=== PATIENT | male | born 1995 | race Caucasian/White ===

== ENCOUNTER 2020-01-07 16:37 | Emergency (ER) | payer BC, SELFPAY ==
[2020-01-07 16:47] VITALS: BP 143/105; PULSE 119; RESP 22; TEMP 37.3; O2SAT 97
--- NOTE | 2020-01-07 16:54 | ECG_ITS ---
Measurements Intervals [place] Rate: 74 P: 54 TN: 150 QRS: 67 QRSD: 99 T: 50 QT: 356 QTc: 395 Interpretive Statements SINUS RHYTHM WITH SINUS ARRHYTHMIA MINIMAL Q WAVES- ANTEROLAT/INF LEADS BORDERLINE ECG Electronically Signed On 01-07-2020 19:36:49 CDT by Uday Oscar D.O.
--- NOTE | 2020-01-07 16:54 | ED.GENADULT ---
HPI - General Adult General Chief complaint: Skin/Abscess/Foreign Body <Amy Hartmann PA-C - Last Filed: 01/07/20 20:18> Stated complaint: ingrown toenail <DUSTY Ramon Last Filed: 01/07/20 20:18> Time Seen by Provider: 01/07/20 16:42 <DUSTY Ramon Last Filed: 01/07/20 20:18> Source: patient <DUSTY Ramon Last Filed: 01/07/20 20:18> Mode of arrival: ambulatory <DUSTY Ramon Last Filed: 01/07/20 20:18> Limitations: no limitations <Amy Hartmann PA-C - Last Filed: 01/07/20 20:18> History of Present Illness HPI narrative: 24-year-old male who is here for evaluation of toe pain. He felt that he had ingrown toenails in both his great toes. His right great toe is red and swollen. Both his nails have fungal infections. He did cut away at his nails himself now they are both quite short, neither look ingrown. He has lesions on his knees from picking. And erythema in a glove distribution of his hands from what he states is chronic handwashing due to his ADHD. He is also wanting to be tested for his hypertension that he has noted since he has been checking his blood pressure at home with his grandfathers machine. Apparently his grandfather has some sort of heart disease that he is afraid he is inherited but he is unsure what that is. <DUSTY Ramon Last Filed: 01/07/20 20:18> Onset (ago): day(s) <DUSTY Ramon Last Filed: 01/07/20 20:18> Related Data Home medications: Home Medications Medication Instructions Recorded Confirmed No Home Medications 01/07/20 01/07/20 <DUSTY Ramon Last Filed: 01/07/20 20:18> Allergies/adverse reactions: Allergies Allergy/AdvReac Type Severity Reaction Status Date / Time No Known Allergies Allergy Verified 01/07/20 16:52 <Amy Hartmann PA-C - Last Filed: 01/07/20 20:18> Review of Systems Review of Systems: All systems reviewed & are unremarkable except as noted in HPI and below <Amy Hartmann PA-C - Last Filed: 01/07/20 20:18> [facility] Family History Family History: Family History Grandparent Heart disease Gout <Amy Hartmann PA-C - Last Filed: 01/07/20 20:18> Social History Social History: Social History (Updated 01/07/20 @ 17:21 by Amy Hartmann PA-C) Smoking status: Current every day smoker Alcohol intake: current Substance use type: marijuana and crack/cocaine Gender identity (if verbalized by the patient): Male <Amy Hartmann PA-C - Last Filed: 01/07/20 20:18> Exam Const: General: no acute distress and alert <Amy Hartmann PA-C - Last Filed: 01/07/20 20:18> Orientation/consciousness: patient oriented x3 <Amy Hartmann PA-C - Last Filed: 01/07/20 20:18> HENMT: Head: normal to inspection <Amy Hartmann PA-C - Last Filed: 01/07/20 20:18> Eyes: Conjunctivae: conjunctivae normal <Amy Hartmann PA-C - Last Filed: 01/07/20 20:18> Pupils: Equal, round and reactive pupils present <Amy Hartmann PA-C - Last Filed: 01/07/20 20:18> Resp: Effort & Inspection: normal respiratory effort <Amy Hartmann PA-C - Last Filed: 01/07/20 20:18> Auscultation: clear to auscultation bilaterally <Amy Hartmann PA-C - Last Filed: 01/07/20 20:18> Cardio: Rate: tachycardic (120) <Amy Hartmann PA-C - Last Filed: 01/07/20 20:18> Rhythm: regular rhythm <DUSTY Ramon Last Filed: 01/07/20 20:18> Skin: General skin exam: dry skin (both knees) and erythema (glove distribution both hands) <Amy Hartmann PA-C - Last Filed: 01/07/20 20:18> Lesions: lesion noted (scabbed lesions over both knees) <DUSTY Ramon Last Filed: 01/07/20 20:18> Nails: yellow and thickened (both great toes) <DUSTY Ramon Last Filed: 01/07/20 20:18> Neuro: General: patient oriented x3 and moves all extremities <Amy Hartmann,
[2020-01-07 17:23] LABS: Basophils Percent Auto 0.6 % (0.2-1.2); Eosinophils Absolute Auto 0.1 K/mm3 (0-0.3); Eosinophils Percent Auto 1.1 % (0-4.4); Hematocrit 37.3 % (42.0-52.0); Hemoglobin 12.6 g/dL (14.0-18.0); Immature Granulocyte Absolute 0.01 K/mm3 (0.00-0.031); Immature Granulocyte Percent A 0.1 % (0-0.5); Lymphocytes Absolute Auto 2.56 K/mm3 (0.9-3.2); Lymphocytes Percent Auto 36.5 % (18.3-44.2); Mean Corpuscular HGB Conc 33.8 g/dl (32-36); Mean Corpuscular Volume 88.8 fl (80-100); Monocytes Absolute Auto 0.8 K/mm3 (0.1-0.6); Neutrophils Absolute Auto 3.6 K/mm3 (1.3-6.7); Neutrophils Percent Auto 50.7 % (45.5-73.1); Platelet Count Result 239 k/mm3 (150-375); Red Cell Distribution Width 13.1 % (11.5-14.5)
[2020-01-07 17:36] LABS: Alanine Aminotransferase 12 U/L (4-50); Albumin Level 4.1 g/dL (3.5-5.1); Alkaline Phosphatase 61 U/L (38-126); Aspartate Amino Transferase 19 U/L (17-59); Bilirubin,Total 0.3 mg/dL (0.2-1.3); Blood Urea Nitrogen 12 mg/dL (9-20); Carbon Dioxide 30 mmol/L (22-30); Chloride 105 mmol/L (98-107); Estimated CRCL calculation 112 ml/min; Estimated Glomerular Filt Rate > 60; Glucose 95 mg/dL (75-110); Potassium 3.8 mmol/L (3.4-5.0); Sodium 140 mmol/L (137-145)
[2020-01-07] MEDS: IBUPROFEN 400 MG TABLET 800 MG PO (17:50)
== END 2020-01-07 17:53 | disposition home or self-care (01) ==
PROVIDERS: Physician Assistant; Emergency Provider General Practice
DX: B35.1 Tinea unguium (principal)
CPT/HCPCS: 36415; 80053; 84550; 85025; 93005; 99283; A9270

== ENCOUNTER 2023-10-01 06:22 | Emergency (ER) | payer BC, SELFPAY ==
--- NOTE | ~2023-10-01 | CT_ITS ---
EXAMINATION: CT abdomen pelvis wo con DATE: 10/01/2023 08:15 INDICATION: Flank pain TECHNIQUE: Computed tomography (CT) of the abdomen and pelvis was performed without intravenous contr ast. Automated exposure control and iterative reconstruction technique were employed. Exam dose: 266 .92 mGy-cm total exam DLP. COMPARISON: None. FINDINGS: There is bibasilar mild dependent lower lobe atelectasis. Normal heart size. No pericardi al or pleural effusion. The liver, gallbladder, bile ducts, pancreas, pancreatic duct, spleen and adr enal glands are unremarkable. No renal space occupying mass lesion is evident on this limited noncontrast examination. No right urinary tract calculus or hydroureteronephrosis. There is an approximately 3 mm nonobstructing left renal calculus. There is an approximately 11 x 12.6 mm left renal pelvic calculus with attenuation of 1087 H.U. There appears to be some thickening of the left renal pelvis wall and surrounding fat stranding, sugg esting possible infection and/or obstructive pyelosinus extravasation. However, in the left renal pel octaviano calculus does not appear to be obstructing the ureterovesical junction in its current position. N o significant hydronephrosis is evident. No left or right ureteral calculus or dilatation. There is a 3 mm calculus of the right lateral dependent aspect of the urinary bladder just lateral to the right ureterovesical junction at the trigone area. The urinary bladder is otherwise unremarkable. There are multiple prostate calcifications. Normal caliber of the abdominal aorta. No intraperitoneal or retroperitoneal or pelvic mass lesion or adenopathy or ascites. Normal appendix. No bowel obstruction, bowel wall thickening, pneumatosis or intraperitoneal free air . Small fat-containing umbilical hernia. Small fat-containing left inguinal hernia. Approximately 1 cm sclerotic lesion of the L3 vertebral body, most likely bone island. IMPRESSION: Limited 0.6 mm left renal pelvic calculus (1087 Hounsfield units) Left renal pelvic wall soft tissue thickening and surrounding fat stranding suggesting obstructive py elosinus extravasation and/or infection 3 mm nonobstructing left renal calculus Normal appendix Reviewed, dictated and finalized at [facility]. Reviewed, dictated and finalized at [facility]. [facility] IMPRESSION: Limited 0.6 mm left renal pelvic calculus (1087 Hounsfield units) Left renal pelvic wall soft tissue thickening and surrounding fat stranding sug gesting obstructive pyelosinus extravasation and/or infection 3 mm nonobstructing left renal calculus Normal appendix
[2023-10-01 06:28] VITALS: BP 142/88; PULSE 61; RESP 18; TEMP 36.9; O2SAT 99
[2023-10-01 07:07] LABS: Basophils Percent Auto 0.5 % (0.2-1.2); Eosinophils Absolute Auto 0.1 K/mm3 (0-0.3); Eosinophils Percent Auto 0.9 % (0-4.4); Hematocrit 41.4 % (42.0-52.0); Hemoglobin 13.7 g/dL (14.0-18.0); Immature Granulocyte Absolute 0.02 K/mm3 (0.00-0.031); Immature Granulocyte Percent A 0.3 % (0-0.5); Lymphocytes Absolute Auto 1.16 K/mm3 (0.9-3.2); Lymphocytes Percent Auto 14.8 % (18.3-44.2); Mean Corpuscular HGB Conc 33.1 g/dl (32-36); Mean Corpuscular Hemoglobin 30.4 pg (26-34); Mean Platelet Volume 10.1 fl (7.4-10.4); Monocytes Absolute Auto 0.4 K/mm3 (0.1-0.6); Monocytes Percent Auto 4.5 % (2.6-8.5); Neutrophils Absolute Auto 6.2 K/mm3 (1.3-6.7); Platelet Count Result 194 k/mm3 (150-375); White Blood Count 7.8 K/mm3 (4.5-10.0)
[2023-10-01 07:18] LABS: Alanine Aminotransferase 15 U/L (6-50); Albumin Level 3.9 g/dL (3.5-5.1); Alkaline Phosphatase 72 U/L (38-126); Anion Gap 9 mmol/L (8-16); Aspartate Amino Transferase 19 U/L (17-59); Bilirubin,Total 0.4 mg/dL (0.2-1.3); Blood Urea Nitrogen 8 mg/dL (9-20); Calcium 8.6 mg/dL (8.4-10.2); Carbon Dioxide 25 mmol/L (22-30); Chloride 107 mmol/L (98-107); Estimated CRCL calculation 146 ml/min; Estimated Glomerular Filt Rate > 60; Glucose 132 mg/dL (65-110); Sodium 141 mmol/L (137-145)
[2023-10-01 07:22] LABS: Bacteria Urine None Seen /hpf; Non Pathogenic Casts 0-2; RBC Urine >100 /hpf (0-2); Squamous Epithelial Cell Urine Few /hpf (Few); WBC Urine 21-50 /hpf
[2023-10-01] MEDS: KETOROLAC 30 MG/ML VIAL (*BKC) IV PUSH (07:29)
[2023-10-01] MEDS: SODIUM CHLORIDE 0.9% IV 1,000 ML 999 ML IV CONT (07:29)
[2023-10-01 07:34] LABS: Appearance Urine Turbid (Clear); Bilirubin Urine Negative (Negative); Blood Urine 3+ (Negative); Glucose Urine UA Negative (Negative); Ketones Urine Trace mg/dL (Negative); Leukocyte Esterase Ur 1+ LEU/UL (Negative); Nitrate Urine Negative (Negative); Protein Urine 2+ mg/dL (Negative); Specific Grav Ur 1.023 (1.001-1.035); pH Urine 5.5 (5.0-9.0)
[2023-10-01 07:46] LABS: Add Urine Microscopic? YES; Color Urine Dark Yellow (Yellow)
[2023-10-01 09:41] VITALS: BP 123/61; PULSE 69; RESP 18; TEMP 36.8; O2SAT 100
--- NOTE | 2023-10-01 10:03 | ED.MALEGU ---
HPI - Male Genitourinary General Chief complaint: Urogenital-Male Stated complaint: flank pain Time Seen by Provider: 10/01/23 07:05 History of Present Illness HPI Narrative: Patient is a 28-year-old male who presents ER with flank pain. Ongoing for the last week. Began on the left side. Then aching. No aggravating or alleviating factors. Woke up this morning with severe pain on the right side going in the abdomen. No history kidney stones. No urinary frequency urgency or dysuria. Denies fevers or chills or sweats. No recent trauma. Related Data Allergies Allergy/AdvReac Type Severity Reaction Status Date / Time No Known Allergies Allergy Verified 10/01/23 07:01 Review of Systems Review of Systems: All systems reviewed & are unremarkable except as noted in HPI and below Constitutional: Constitutional: Reports no additional constitutional complaints ENT: Reports system reviewed and no additional complaints, except as documented Cardiovascular: Cardiovascular: Reports no additional cardiovascular complaints Respiratory: Respiratory: Reports no additional respiratory complaints Gastrointestinal: Gastrointestinal: Reports no additional gastrointestinal complaints Genitourinary: Genitourinary: Denies oliguria, Denies dysuria, Denies testicular pain and Denies urinary frequency Comments: +flank pain PMFSH Past Medical History Medical History (Updated 10/01/23 @ 10:59 by Troy Dunn MD) ADHD Anxiety Surgical History Surgical History (Updated 10/01/23 @ 10:04 by Troy Dunn MD) History of hernia surgery Family History Family History Grandparent Heart disease Gout Social History Social History (Updated 10/01/23 @ 10:05 by Troy Dunn MD) Social History: h/o heroin abuse, currently on suboxone 09/2023. Smoking status: Current every day smoker Alcohol intake: current Substance use type: marijuana and crack/cocaine Gender identity (if verbalized by the patient): Male Exam Narrative: GENERAL: Well-appearing, well-nourished, and in no acute distress. HEAD: Normocephalic, atraumatic. EYES: PERRL and EOMI. ENT: Mucous membranes moist. CHEST: Clear to auscultation. No respiratory distress. HEART: Regular rate and rhythm. Normal peripheral pulses. ABDOMEN: Soft, nontender, nondistended, no CVA tenderness. EXTREMITIES: Normal range of motion. No edema. SKIN: Warm, dry, no rash. NEURO: Alert and oriented x3. PSYCH: Normal mood and affect. Course Course Emergency Course: Patient informed of results. Urology consulted and they have been into the room and had a formal discussion with the patient. Will be discharged home on antibiotics and will follow up outpatient to have a stent and lithotripsy performed. Vital Signs Vital signs: Vital Signs Temperature 98.4 F 10/01/23 06:28 Pulse Rate 61 10/01/23 06:28 Respiratory Rate 18 10/01/23 06:28 Blood Pressure 142/88 H 10/01/23 06:28 Pulse Oximetry 99 10/01/23 06:28 Oxygen Delivery Room Air 10/01/23 06:28 Temperature 98.2 F 10/01/23 09:41 Pulse Rate 69 10/01/23 09:41 Respiratory Rate 18 10/01/23 09:41 Blood Pressure 123/61 10/01/23 09:41 Pulse Oximetry 100 10/01/23 09:41 Oxygen Delivery Room Air 10/01/23 06:28 MDM - Male Genitourinary Lab Data 10/01/23 06:59 10/01/23 06:59 Labs: Lab Results 10/01/23 Range/Units 06:59 WBC 7.8 (4.5-10.0) K/mm3 RBC 4.50 L (4.6-6.20) M/mm3 Hgb 13.7 L (14.0-18.0) g/dL Hct 41.4 L (42.0-52.0) % MCV 92.0 (80-100) fl MCH 30.4 (26-34) pg MCHC 33.1 (32-36) g/dl RDW 13.0 (11.5-14.5) % Plt Count 194 (150-375) k/mm3 MPV 10.1 (7.4-10.4) fl Immature Gran % (Auto) 0.3 (0-0.5) % Neut % (Auto) 79.0 H (45.5-73.1) % Lymph % (Auto) 14.8 L (18.3-44.2) % [place] % (Auto) 4.5 (2.6-8.5) % Eos % (Auto) 0.9 (0
--- NOTE | 2023-10-01 10:45 | PC.NURSE ---
Urology in to see pt.
--- NOTE | 2023-10-01 11:51 | WPDURCON ---
Assessment and Plan Assessment and plan (1) Kidney stone: Code(s): N20.0 - Calculus of kidney Status: Acute Assessment and Plan: Small 3 mm stone in his bladder that is likely recently passed from his right ureter Large 1.5 cm left renal pelvic stone - comfortable with discharge home on oral antibiotics pending a urine culture. - will make arrangements for outpatient cysto with left stent placement and left ESWL. Urology Consult Note HPI Date Seen: 10/01/23 Requesting Physician: Dr. Dunn Primary Care Provider: UNKNOWN,DOCTOR Consult Narrative Narrative: Wilberto Pryor is a 28 year old male who is unknown to our practice but has spontaneously passed a small stone in the distant past. He presents to the emergency department with a week-long history right flank pain radiating to his right lower quadrant. This has been associated with some nausea but no vomiting. He has had no fever chills or gross hematuria. Imaging demonstrates a small 3 mm right stone that has likely passed from his distal right ureter into his bladder. Additionally he has a 1.5 cm left renal pelvic stone with inflammation and edema of the renal pelvic wall. At this point, he is pain free after 1 dose of IV Toradol. Review of Systems Cardiovascular: Cardiovascular: Denies chest pain, Denies lightheadedness, Denies palpitations and Denies dyspnea Respiratory: Respiratory: Denies dyspnea Gastrointestinal: Gastrointestinal: Denies diarrhea, Denies nausea and Denies vomiting Genitourinary: Genitourinary: Denies hematuria and Denies dysuria Endocrine: Endocrine: Denies palpitations PMFSH Past Medical History Medical History (Updated 10/01/23 @ 10:59 by Troy Dunn MD) ADHD Anxiety Surgical History Surgical History (Updated 10/01/23 @ 10:04 by Troy Dunn MD) History of hernia surgery Family History Family History Grandparent Heart disease Gout Social History Social History (Updated 10/01/23 @ 10:05 by Troy Dunn MD) Social History: h/o heroin abuse, currently on suboxone 09/2023. Smoking status: Current every day smoker Alcohol intake: current Substance use type: marijuana and crack/cocaine Gender identity (if verbalized by the patient): Male Meds Home Medications and Allergies Home Medications Medication Instructions Recorded Confirmed Type cefuroxime axetil 500 mg tablet 500 mg PO BID #20 tabs 10/01/23 Rx Allergies Allergy/AdvReac Type Severity Reaction Status Date / Time No Known Allergies Allergy Verified 10/01/23 07:01 Vital Signs Vital Signs - 24 hr 10/01/23 06:28 10/01/23 09:41 Temperature 98.4 F 98.2 F Pulse Rate 61 69 Respiratory Rate 18 18 Blood Pressure 142/88 H 123/61 Pulse Oximetry 99 100 Oxygen Delivery Room Air Exam Const: General: no acute distress Resp: Effort & Inspection: normal respiratory effort GI: Inspection: non-distended GI Palp: No abdominal tenderness and No Guarding due to palpation present (GI) Auscultation: normal bowel sounds Results Labs 10/01/23 06:59 10/01/23 06:59 Labs: Short CBC 10/01/23 Range/Units 06:59 WBC 7.8 (4.5-10.0) K/mm3 Hgb 13.7 L (14.0-18.0) g/dL Hct 41.4 L (42.0-52.0) % Plt Count 194 (150-375) k/mm3 BMP 10/01/23 06:59 Sodium 141 Potassium 4.0 Chloride 107 Carbon Dioxide 25 BUN 8 L Creatinine 0.70 Glucose 132 H Calcium 8.6 Liver Function 10/01/23 Range/Units 06:59 Total Bilirubin 0.4 (0.2-1.3) mg/dL AST 19 (17-59) U/L ALT 15 (6-50) U/L Alkaline Phosphatase 72 (38-126) U/L Albumin 3.9 (3.5-5.1) g/dL Urine 10/01/23 Range/Units 06:59 Urine Color Dark yellow (Yellow) Urine Appearance Turbid H (Clear) Urine pH 5.5 (5.0-9.0) Ur Specific [place] 1.023 (1.001-1.035) Urine Protein 2+ H (Negative)
== END 2023-10-01 11:14 | disposition home or self-care (01) ==
PROVIDERS: Emergency Provider Emergency Medicine
DX: N20.0 Calculus of kidney (principal); F17.200 Nicotine dependence, unspecified, uncomplicated
CPT/HCPCS: 36415; 74176; 80053; 81001; 85025; 87086; 96361; 96374; 99284; J1885; J7030

== ENCOUNTER 2023-10-21 12:35 | Emergency (ER) | payer BC, SELFPAY ==
[2023-10-21 12:39] VITALS: BP 141/69; PULSE 54; RESP 18; TEMP 36.4; O2SAT 100
[2023-10-21 12:53] LABS: Basophils Absolute Auto 0.1 K/mm3 (0.0-0.1); Basophils Percent Auto 0.7 % (0.2-1.2); Eosinophils Absolute Auto 0.1 K/mm3 (0-0.3); Eosinophils Percent Auto 1.2 % (0-4.4); Hematocrit 42.9 % (42.0-52.0); Hemoglobin 14.6 g/dL (14.0-18.0); Immature Granulocyte Absolute 0.03 K/mm3 (0.00-0.031); Immature Granulocyte Percent A 0.3 % (0-0.5); Lymphocytes Absolute Auto 3.87 K/mm3 (0.9-3.2); Lymphocytes Percent Auto 42.4 % (18.3-44.2); Mean Corpuscular Hemoglobin 30.2 pg (26-34); Mean Corpuscular Volume 88.6 fl (80-100); Mean Platelet Volume 10.1 fl (7.4-10.4); Monocytes Absolute Auto 0.5 K/mm3 (0.1-0.6); Monocytes Percent Auto 5.3 % (2.6-8.5); Neutrophils Absolute Auto 4.6 K/mm3 (1.3-6.7); Neutrophils Percent Auto 50.1 % (45.5-73.1); Platelet Count Result 324 k/mm3 (150-375); Red Blood Count 4.84 M/mm3 (4.6-6.20); Red Cell Distribution Width 12.3 % (11.5-14.5); White Blood Count 9.1 K/mm3 (4.5-10.0)
[2023-10-21 18:01] LABS: Alanine Aminotransferase 13 U/L (6-50); Albumin Level 4.1 g/dL (3.5-5.1); Alkaline Phosphatase 80 U/L (38-126); Anion Gap 8 mmol/L (8-16); Aspartate Amino Transferase 17 U/L (17-59); Bilirubin,Total 0.4 mg/dL (0.2-1.3); Blood Urea Nitrogen 12 mg/dL (9-20); Calcium 8.9 mg/dL (8.4-10.2); Carbon Dioxide 28 mmol/L (22-30); Chloride 106 mmol/L (98-107); Estimated Glomerular Filt Rate > 60; Glucose 133 mg/dL (65-110); Potassium 3.3 mmol/L (3.4-5.0); Sodium 142 mmol/L (137-145)
== END 2023-10-21 15:48 | disposition left against medical advice (07) ==
PROVIDERS: Emergency Provider Emergency Medicine
DX: N20.0 Calculus of kidney (principal)
CPT/HCPCS: 36415; 80053; 85025; 99199

== ENCOUNTER 2024-04-22 08:07 | Emergency (ER) | payer BC, SELFPAY ==
--- NOTE | ~2024-04-22 | CT_ITS ---
EXAMINATION: CT abdomen pelvis wo con DATE: 04/22/2024 09:41 INDICATION: Left flank pain TECHNIQUE: Computed tomography (CT) of the abdomen and pelvis was performed without intravenous contr ast. The dose-length product was 272.71 mGy-cm. Automated exposure control and iterative reconstructi on technique were employed. COMPARISON: CT dated 10/01/2023 FINDINGS: Lung bases are unremarkable. Heart size normal. No significant pleural or pericardial effus ion. There is a large stone in the left renal pelvis measuring 1.5 x 1.2 cm. There is left hydronephr osis. The liver, spleen, pancreas, adrenal glands and right kidney are unremarkable. Gallbladder is p resent. Nonobstructive bowel gas pattern. No free air or free fluid. Bladder is unremarkable. No abno rmal pelvic masses or fluid collections. IMPRESSION: 1. Left renal stone in the renal pelvis measuring 1.5 cm. Mild hydronephrosis. Reviewed, dictated and finalized at [facility].
[2024-04-22 08:12] VITALS: BP 122/59; PULSE 71; RESP 16; TEMP 36.7; O2SAT 100
[2024-04-22 09:07] LABS: Basophils Percent Auto 0.4 % (0.2-1.2); Eosinophils Absolute Auto 0.1 K/mm3 (0-0.3); Eosinophils Percent Auto 0.7 % (0-4.4); Hematocrit 42.8 % (42.0-52.0); Hemoglobin 14.1 g/dL (14.0-18.0); Immature Granulocyte Absolute 0.04 K/mm3 (0.00-0.031); Immature Granulocyte Percent A 0.4 % (0-0.5); Lymphocytes Absolute Auto 1.42 K/mm3 (0.9-3.2); Lymphocytes Percent Auto 14.3 % (18.3-44.2); Mean Corpuscular HGB Conc 32.9 g/dl (32-36); Mean Corpuscular Hemoglobin 29.9 pg (26-34); Mean Corpuscular Volume 90.9 fl (80-100); Mean Platelet Volume 10.5 fl (7.4-10.4); Monocytes Absolute Auto 0.5 K/mm3 (0.1-0.6); Monocytes Percent Auto 4.6 % (2.6-8.5); Neutrophils Absolute Auto 7.9 K/mm3 (1.3-6.7); Neutrophils Percent Auto 79.6 % (45.5-73.1); Platelet Count Result 214 k/mm3 (150-375); Red Blood Count 4.71 M/mm3 (4.6-6.20); Red Cell Distribution Width 12.6 % (11.5-14.5); White Blood Count 9.9 K/mm3 (4.5-10.0)
[2024-04-22 09:11] LABS: Alanine Aminotransferase 8 U/L (6-50); Albumin Level 4.7 g/dL (3.5-5.1); Alkaline Phosphatase 54 U/L (38-126); Anion Gap 9 mmol/L (4-12); Aspartate Amino Transferase 18 U/L (17-59); Bilirubin,Total 0.4 mg/dL (0.2-1.3); Blood Urea Nitrogen 11 mg/dL (9-20); Calcium 9.5 mg/dL (8.4-10.2); Carbon Dioxide 30 mmol/L (22-30); Chloride 102 mmol/L (98-107); Estimated CRCL calculation 122 ml/min; Estimated Glomerular Filt Rate > 60; Glucose 104 mg/dL (65-110); Potassium 4.4 mmol/L (3.4-5.0); Sodium 141 mmol/L (137-145)
--- NOTE | 2024-04-22 09:18 | ED.GENADULT ---
HPI - General Adult General Chief complaint: Urogenital-Male Stated complaint: left flank pain Time Seen by Provider: 04/22/24 08:31 History of Present Illness HPI narrative: 28-year-old male presenting to the emergency department for evaluation for left flank pain. Patient reports that he does have a prior history of a kidney stone but never had follow-up to have the kidney stone taking care of. Patient states that he had forgotten about the kidney stone until he had onset of left flank pain this morning. Patient did have associated nausea and a bowel movement. Patient reports he does have a prior history of opiate abuse and declined any opiate pain medications. Related Data Allergies Allergy/AdvReac Type Severity Reaction Status Date / Time No Known Allergies Allergy Verified 10/01/23 07:01 Review of Systems Review of Systems: All systems reviewed & are unremarkable except as noted in HPI and below PMFSH Past Medical History Medical History (Updated 04/22/24 @ 10:13 by Toño Becker MD) ADHD Anxiety Surgical History Surgical History (Updated 10/01/23 @ 10:04 by Troy Dunn MD) History of hernia surgery Family History Family History Grandparent Heart disease Gout Social History Social History (Updated 10/01/23 @ 10:05 by Troy Dunn MD) Social History: h/o heroin abuse, currently on suboxone 09/2023. Smoking status: Current every day smoker Alcohol intake: current Substance use type: marijuana and crack/cocaine Gender identity (if verbalized by the patient): Male Exam Narrative: APPEARANCE: No distress, well-appearing HEAD: normocephalic, atraumatic. EYES: PERRLA/EOMI, conjunctivae clear. NOSE: Normal no drainage EARS:TMS clear with good light reflex. THROAT: Pharynx clear, no exudate. NECK: Supple. No adenopathy, no masses. RESPIRATORY: Airway patent, respirations nonlabored. Clear to auscultation bilaterally, no rales, rhonchi, wheezing. CARDIOVASCULAR: Regular rate and rhythm without murmurs rubs or gallops. ABDOMINAL: Soft, nontender, nondistended, normal bowel sounds MUSCULOSKELETAL: Moves all extremities. Strength/ROM intact, No edema, No calf tenderness. NEURO: Alert. Cranial nerves II through XII intact. Grossly intact SKIN: Warm, dry. Normal Color Course Course Emergency Course: Patient was comfortable plan for discharge and close follow-up. Patient was no distress at time of discharge. Vital Signs Vital signs: Vital Signs Temperature 98.1 F 04/22/24 08:12 Pulse Rate 71 04/22/24 08:12 Respiratory Rate 16 04/22/24 08:12 Blood Pressure 122/59 L 04/22/24 08:12 Pulse Oximetry 100 04/22/24 08:12 Oxygen Delivery Room Air 04/22/24 08:12 Temperature 98.1 F 04/22/24 08:12 Pulse Rate 55 L 04/22/24 09:34 Respiratory Rate 16 04/22/24 09:34 Blood Pressure 122/66 04/22/24 09:34 Pulse Oximetry 100 04/22/24 09:34 Oxygen Delivery Room Air 04/22/24 08:12 Medical Decision Making MDM Narrative Medical decision making narrative: 28-year-old male present to the emergency department for evaluation for intermittent left flank pain. Patient is afebrile with no leukocytosis and a stable hemoglobin. Patient has no acute abnormalities on his CMP is normal kidney function. UA does show some hematuria and some high white blood cells. CT scan did show evidence of a stone in the left renal pelvis. Patient was going to have outpatient follow-up previously for this and patient is willing to have outpatient follow-up today. Patient is no distress patient has no acute infection. Patient is suitable for outpatient follow-up. Patient was also educated on reasons to return to the emergency department. Differential Diagnosis Differential Diagnosis: Ureteral calculi, kidney stone, urinary tract infection, infected stone, colitis, diverticulitis Vital Signs Vital Signs: Vit
[2024-04-22 09:24] LABS: Appearance Urine Clear (Clear); Bacteria Urine None Seen /hpf; Bilirubin Urine Negative (Negative); Blood Urine 2+ (Negative); Color Urine Yellow (Yellow); Glucose Urine UA Negative (Negative); Ketones Urine Trace mg/dL (Negative); Leukocyte Esterase Ur Trace LEU/UL (Negative); Mucus Urine Present /lpf; Need Manual Microscopic Reviewed; Nitrate Urine Negative (Negative); Non Pathogenic Casts 0-2; Protein Urine 2+ mg/dL (Negative); Specific Grav Ur 1.024 (1.001-1.035); Squamous Epithelial Cell Urine None Seen /hpf (Few); Urobilinogen Urine 0.2 mg/dL (<2.0); pH Urine 5.5 (5.0-9.0)
[2024-04-22 09:26] LABS: Add Urine Microscopic? YES
[2024-04-22 09:34] VITALS: BP 122/66; PULSE 55; RESP 16; O2SAT 100
[2024-04-22] MEDS: KETOROLAC 30 MG/ML VIAL (*BKC) IM (10:34)
== END 2024-04-22 10:41 | disposition home or self-care (01) ==
PROVIDERS: Emergency Provider Emergency Medicine
DX: N20.0 Calculus of kidney (principal); F90.9 Attention-deficit hyperactivity disorder, unspecified type; F17.210 Nicotine dependence, cigarettes, uncomplicated
CPT/HCPCS: 36415; 74176; 80053; 81001; 85025; 87086; 96372; 99284; J1885

== ENCOUNTER 2024-07-17 09:17 | Emergency (ER) | payer BC, SELFPAY ==
--- NOTE | 2024-07-17 09:24 | ED.NAVMDI ---
HPI - Nausea/Vomiting/Diarrhea General Chief complaint: Nausea/Vomiting/Diarrhea Stated complaint: vomiting Time Seen by Provider: 07/17/24 09:24 Source: patient Mode of arrival: ambulatory Limitations: no limitations History of Present Illness HPI Narrative: Wilberto is a 28-year-old male patient presenting to the clinic today with complaints of runny nose, nausea, and vomiting. He reports his symptoms started last night. He has had exposure to COVID. Did at home COVID test last night was negative. Denies any fevers but does have some body aches but states that this is normal for him. Denies any chest pain, shortness of breath, cough, or diarrhea. Related Data Allergies Allergy/AdvReac Type Severity Reaction Status Date / Time No Known Allergies Allergy Verified 07/17/24 09:23 Review of Systems Review of Systems: Pertinent positives per HPI. Patient denies any fever, chills, rash, headache, visual changes, dizziness, cough, shortness of breath, chest pain, palpitations, diarrhea, constipation, abdominal pain, or any urinary issues. PMFSH Past Medical History Medical History ADHD Anxiety Surgical History Surgical History History of hernia surgery Family History Family History Grandparent Heart disease Gout Social History Social History Social History: h/o heroin abuse, currently on suboxone 09/2023. Smoking status: Current every day smoker Alcohol intake: current Substance use type: marijuana and crack/cocaine Gender identity (if verbalized by the patient): Male Comments At the time of my signature, I reviewed and agree with the nursing past medical, surgical, social, and family history. There is no relevant family history pertinent to the patient complaint. Exam Narrative: General: Well-developed, well nourished, in no apparent distress Head: Normocephalic, atraumatic Eyes: Pupils equally round and reactive to light bilaterally, EOM intact, sclera and conjunctive clear, no discharge, lids normal Ears: TMs intact and clear, ear canals clear, no drainage, grossly hearing normal. Nose: Nares patent, clear nasal discharge, no inflammation, no sinus tenderness. Mouth: Oral pharynx without lesions or masses, good dentition, MMM. Neck: Supple, trachea midline, no enlargement of anterior or posterior cervical nodes, no thyroid masses or goiter palpable. Cardio: Regular rate and rhythm, s1 and s2 normal, no murmur appreciated. Resp: Clear to auscultation bilaterally, no rhonchi, rales, wheezing or rubs Abdomen: Soft, pliable, nondistended, bowel sounds present all 4 quadrants, nontender to palpation, no organomegaly, no CVAT tenderness Course Course Emergency Course: Portions of this record may have been created with voice recognition software. Level of Care: Express Care Visit Vital Signs Vital signs: Vital signs reviewed MDM - Nausea/Vomiting/Diarrhea MDM Narrative Medical decision making narrative: At the time of visit patient is resting comfortably on the exam table. Patient appears to be nontoxic. Labs: COVID and influenza testing was performed and was negative in the clinic today. Plan: I suspect patient has URI/acute nausea vomiting. Prescription for Zofran was sent to the pharmacy. Supportive measures were discussed with the patient and they voiced understanding discharge instructions and agrees to treatment plan. Return precautions reviewed Differential Diagnosis Differential diagnosis: Likely traveler's diarrhea, food poisoning, gastroenteritis, drug-induced nausea and vomiting, dehydration and other (COVID, influenza, viral syndrome) Discharge Plan Discharge Clinical Impression: URI (upper respiratory infection) Qualifiers: UR
[2024-07-17 09:25] VITALS: BP 143/82; PULSE 83; RESP 16; TEMP 36.6; O2SAT 100
[2024-07-17 10:06] LABS: EDCOVIDSCREEN Negative (Negative); EDINFLUASCREEN Negative (Negative); EDINFLUBSCREEN Negative (Negative)
== END 2024-07-17 09:50 | disposition home or self-care (01) ==
PROVIDERS: Emergency Provider Nurse Practitioner Family
DX: J06.9 Acute upper respiratory infection, unspecified (principal); R11.2 Nausea with vomiting, unspecified; Z20.822 Contact with and (suspected) exposure to COVID-19; F17.200 Nicotine dependence, unspecified, uncomplicated; F12.90 Cannabis use, unspecified, uncomplicated; F14.90 Cocaine use, unspecified, uncomplicated
CPT/HCPCS: 87426; 87804; 99213; G0463

== ENCOUNTER 2024-10-01 08:49 | Day surgery (SDC) | payer BC, SELFPAY ==
[2024-10-01] VITALS (10 sets, daily range): BP systolic 111–151; BP diastolic 66–85; PULSE 71–132; RESP 11–20; TEMP 37.2–37.8; O2SAT 98–100
--- NOTE | ~2024-10-01 | CT_ITS ---
CT abdomen pelvis wo con Ordering provider: Aristeo Henriquez MD History: 29 years Male with . kidney stone . Comparison: April 22, 2024 Technique: CT abdomen and pelvis without the administration of the knee and the left IV and without o ral contrast. Automated exposure control and iterative reconstruction technique were employed. The do se-length product was 189.62 mGy-cm. Findings: VISUALIZED LOWER CHEST: Normal. UPPER ABDOMINAL ORGANS: Liver: Hepatomegaly. Gallbladder: Normal. Spleen: Normal. Stomach/duodenum: Normal. Pancreas: Normal. Adrenals: Normal. Kidneys: Stone in the left renal pelvis is seen measuring 1.6 cm with mild hydronephrotic changes. PELVIC ORGANS: The bladder is normal. BOWEL AND MESENTERY: Colon: No evidence of diverticulitis. Fecal material is seen in the large bowel suggestive of constip ation. The appendix is not demonstrated. Small Bowel: Normal. No obstruction. Peritoneum/mesentery: No free air or free fluid. No mesenteric lymphadenopathy. RETROPERITONEUM: Normal aorta. No retroperitoneal lymphadenopathy. MUSCULOSKELETAL: Superficial soft tissues: The superficial soft tissues are normal. Bones: Normal spine. IMPRESSION: 1. Stone in the left kidney renal pelvis with mild hydronephrotic changes. 2. Constipation. 3. Hepatomegaly. Reviewed, dictated and finalized at location A. RONMENTAL PROTECTION INSPECTOR
--- NOTE | ~2024-10-01 | XR_ITS ---
XR retrograde pyelo w/stent LT DATE: 10/01/2024 17:07 INDICATION: Left internal urinary stent placement TECHNIQUE: 2 spot C-arm images of the left abdomen 21.6 seconds fluoroscopy time 3.81 mGy COMPARISON: None FINDINGS: A left internal urinary stent is visualized. There is mild left hydronephrosis and blunting of the left renal calyces IMPRESSION: Left internal urinary stent placement Reviewed, dictated and finalized at Location A. Reviewed, dictated and finalized at location A. FORM SUPERVISOR
--- NOTE | 2024-10-01 14:05 | ED.BACK ---
HPI - Back Pain/Injury General Chief Complaint: Back Pain/Injury Stated Complaint: kidney stone Time Seen by Provider: 10/01/24 12:22 History of Present Illness HPI Narrative: 29-year-old male with a past medical history of nephrolithiasis presenting to the emergency room with a chief complaint of left flank pain radiating to his left groin. He states he has had intermittent pain for last several months and was seen here a couple months prior and diagnosed with a large kidney stone. He was discharged home with urology follow-up but was not able to schedule anything secondary to insurance issues. He presents today with 2 days of ongoing back pain, associated nausea without vomiting, difficulty urinating and pain with urination. He states that it feels very similar to his kidney stone pain but now it is migrating towards his left groin which is new for him. Denies any injuries or trauma. No fever chills, headache, vision changes, chest pain shortness a breath. In triage she was noted to be tachycardic and borderline febrile with temperature 37.8? however both of these have resolved upon his initial presentation back in his examination room. Related Data Allergies Allergy/AdvReac Type Severity Reaction Status Date / Time No Known Allergies Allergy Verified 07/17/24 09:23 Review of Systems Review of Systems: As reviewed above in HPI [facility] Past Medical History Medical History Anxiety ADHD Surgical History Surgical History History of hernia surgery Family History Family History Grandparent Heart disease Gout Social History Social History Social History: h/o heroin abuse, currently on suboxone 09/2023. Smoking status: Current every day smoker Alcohol intake: current Substance use type: marijuana and crack/cocaine Gender identity (if verbalized by the patient): Male Exam Narrative: GENERAL: Uncomfortable appearing, not able to find a position of comfort in bed, awake alert able answer questions HEAD: [Normocephalic, atraumatic.] EYES: [PERRLA and EOMI.] ENT: Nares clear, no rhinorrhea or epistaxis. Mucous membranes moist. NECK: Supple. CHEST: [Clear to auscultation. No respiratory distress.] HEART: [Regular rate and rhythm]. No murmur heard. [Normal peripheral pulses.] ABDOMEN: [Soft, nondistended], tender to palpation left flank, no signs of peritonitis, [No rigidity or guarding] EXTREMITIES: Normal range of motion. [No edema.] SKIN: Warm, dry, no rash. NEURO: [No focal deficits]. Alert and oriented [x3.] PSYCH: [Normal mood and affect.] Course Vital Signs Vital signs: Vital Signs Temperature 37.8 C H 10/01/24 08:52 Pulse Rate 132 H 10/01/24 08:52 Respiratory Rate 20 10/01/24 08:52 Blood Pressure 151/69 H 10/01/24 08:52 Pulse Oximetry 100 10/01/24 08:52 Oxygen Delivery Autopap 10/01/24 08:52 Temperature 37.4 C 10/01/24 16:25 Pulse Rate 76 10/01/24 16:14 Respiratory Rate 16 10/01/24 16:14 Blood Pressure 111/67 10/01/24 16:14 Pulse Oximetry 98 10/01/24 16:14 Oxygen Delivery Autopap 10/01/24 08:52 MDM - Back Pain/Injury MDM Narrative Medical decision making narrative: 29-year-old male with history of nephrolithiasis presenting to the emergency room with left flank pain rating to his left groin. He is uncomfortable appearing, not able to sit still, endorses difficulty urinating and has was tachycardic and borderline febrile in triage. He is no longer tachycardic and his temperature is 37.4? C without intervention. He is saturating well on room air. Normal blood pressure. He has a soft nondistended but minimally tender abdomen left flank. Considerations presently are for a kidney stone especially given the size of his previous stone that likely is not migrated. The new associated groin pain could be a potential migration of the stone or separate stone or piece of the regional stone. Urinary tract infection with infected kidney stone is higher in the differential given his initial vitals. A CT scan without contrast was obtained as well as blood a sick laboratory studies including CBC, CMP, urinalysis. Patient requests non opiate level medications secondary to his history of substance use. He was given Toradol and a fluid bolus and reassessed. Patient was reassessed and his pain came down slightly down to a 7/10 after the Toradol. His white count is unremarkable, no evidence of any renal injury, normal creatinine. Urinalysis with some trace leukocytes but no convincing evidence of infection with a negative bacteria. His CT scan shows a 1.6 cm kidney stone in the renal pelvis and left side with some hydronephrotic changes. Patient is inquiring about any kind of interventions that could be done as he has had attempts at outpatient follow-up with Urology and scheduling appointments but due to multiple insurance issues has not been able to get follow-up over a year. I discussed the case with our on-call urologist Dr. Peterson who after reviewing patient's imaging and case has offered the patient a stent placement here in the hospital prior to discharge home. Patient and family were very appreciative this plan of care and were willing to undergo this. His last oral intake was 6:00 p.m. last night. He has made NPO and will be planned to go the operating room from the emergency department. Medical Records Attestation: I reviewed the patient's medical records. Lab Data Attestation: I reviewed the patient's lab results. 10/01/24 14:21 10/01/24 14:47 Labs: Lab Results 10/01/24 10/01/24 Range/Units 14:21 14:47 WBC 5.5 (4.5-10.0) K/mm3 RBC 4.33 L (4.6-6.20) M/mm3 Hgb 13.5 L (14.0-18.0) g/dL Hct 38.8 L (42.0-52.0) % MCV 89.6 (80-100) fl MCH 31.2 (26-34) pg MCHC 34.8 (32-36) g/dl RDW 12.3 (11.5-14.5) % Plt Count 168 (150-375) k/mm3 MPV 9.7 (7.4-10.4) fl Immature Gran % (Auto) 0.4 (0-0.5) % Neut % (Auto) 84.5 H (45.5-73.1) % Lymph % (Auto) 4.8 L (18.3-44.2) % [place] % (Auto) 9.7 H (2.6-8.5) % Eos % (Auto) 0.2 (0-4.4) % Baso % (Auto) 0.4 (0.2-1.2) % Lymph # (Auto) 0.26 L (0.9-3.2) K/mm3 [place] # (Auto) 0.5 (0.1-0.6) K/mm3 Eos # (Auto) 0.0 (0-0.3) K/mm3 Baso # (Auto) 0.0 (0.0-0.1) K/mm3 Abs Immat Gran (auto) 0.02 (0.00-0.031) K/mm3 Absolute Neuts (auto) 4.6 (1.3-6.7) K/mm3 Absolute Nucleated RBC 0.000 (0.0-0.012) K/mm3 Nucleated RBC % 0.0 (0.0-0.2) % Sodium 137 (137-145) mmol/L Potassium 3.7 (3.4-5.0) mmol/L Chloride 106 (98-107) mmol/L Carbon Dioxide 30 (22-30) mmol/L Anion Gap 1 L (4-12) mmol/L BUN 10 (9-20) mg/dL Creatinine 0.80 (0.7-1.3) mg/dL Estim Creat Clear Calc 112 ml/min Estimated GFR > 60 (59 - ) Glucose 101 (65-110) mg/dL Calcium 8.7 (8.4-10.2) mg/dL Total Bilirubin 0.3 (0.2-1.3) mg/dL AST 15 L (17-59) U/L ALT 11 (6-50) U/L Alkaline Phosphatase 53 (38-126) U/L Total Protein 7.0 (6.3-8.2) g/dL Albumin 4.0 (3.5-5.1) g/dL Urine Color Yellow (Yellow) Urine Appearance Clear (Clear) Urine pH 8.0 (5.0-9.0) Ur Specific [place] 1.014 (1.001-1.035) Urine Protein 1+ H (Negative) mg/dL Urine Glucose (UA) Negative (Negative) mg/dL Urine Ketones Negative (Negative) mg/dL Ur Blood (Man) 2+ H (Negative) Urine Nitrate Negative (Negative) Urine Bilirubin Negative (Negative) Urine Urobilinogen 0.2 (<2.0) mg/dL Leukocyte Esterase Rfl Trace H (Negative) DANIA/UL Urine RBC 21-50 H (0-2) /hpf Urine WBC 6-10 H (0-3) /hpf Ur Squamous Epith Cells None seen (Few) /hpf Urine Bacteria None seen /hpf Urine Casts 3-5 Imaging Data Attestation: I personally reviewed and interpreted this imaging study as follows: My impression: Large renal pelvis kidney stone measuring 1.56 cm Impressions Abdomen/Pelvis CT 10/01/24 15:04 IMPRESSION: 1. Stone in the left kidney renal pelvis with mild hydronephrotic changes. 2. Constipation. 3. Hepatomegaly. Discharge Plan Discharge Clinical Impression: Kidney stone on left side, Acute left flank pain Patient Disposition: Still a Patient Condition: Stable Time of Disposition: 15:54
[2024-10-01 14:31] LABS: Basophils Percent Auto 0.4 % (0.2-1.2); Eosinophils Percent Auto 0.2 % (0-4.4); Hematocrit 38.8 % (42.0-52.0); Hemoglobin 13.5 g/dL (14.0-18.0); Immature Granulocyte Absolute 0.02 K/mm3 (0.00-0.031); Immature Granulocyte Percent A 0.4 % (0-0.5); Lymphocytes Absolute Auto 0.26 K/mm3 (0.9-3.2); Lymphocytes Percent Auto 4.8 % (18.3-44.2); Mean Corpuscular HGB Conc 34.8 g/dl (32-36); Mean Corpuscular Hemoglobin 31.2 pg (26-34); Mean Corpuscular Volume 89.6 fl (80-100); Mean Platelet Volume 9.7 fl (7.4-10.4); Monocytes Absolute Auto 0.5 K/mm3 (0.1-0.6); Monocytes Percent Auto 9.7 % (2.6-8.5); Neutrophils Absolute Auto 4.6 K/mm3 (1.3-6.7); Neutrophils Percent Auto 84.5 % (45.5-73.1); Platelet Count Result 168 k/mm3 (150-375); Red Blood Count 4.33 M/mm3 (4.6-6.20); Red Cell Distribution Width 12.3 % (11.5-14.5); White Blood Count 5.5 K/mm3 (4.5-10.0)
[2024-10-01] MEDS: TAMSULOSIN HCL 0.4 MG CAPSULE PO (14:35)
[2024-10-01] MEDS: KETOROLAC 30 MG/ML VIAL (*BKC) IV PUSH (14:35)
[2024-10-01 14:42] LABS: Add Urine Microscopic? YES; Appearance Urine Clear (Clear); Bacteria Urine None Seen /hpf; Bilirubin Urine Negative (Negative); Blood Urine 2+ (Negative); Color Urine Yellow (Yellow); Glucose Urine UA Negative (Negative); Ketones Urine Negative (Negative); Leukocyte Esterase Ur Trace LEU/UL (Negative); Nitrate Urine Negative (Negative); Protein Urine 1+ mg/dL (Negative); RBC Urine 21-50 /hpf (0-2); Specific Grav Ur 1.014 (1.001-1.035); Squamous Epithelial Cell Urine None Seen /hpf (Few); Urobilinogen Urine 0.2 mg/dL (<2.0)
[2024-10-01] MEDS: LACTATED RINGERS 1,000 ML 999 ML IV CONT (14:47)
[2024-10-01 15:10] LABS: Alanine Aminotransferase 11 U/L (6-50); Alkaline Phosphatase 53 U/L (38-126); Anion Gap 1 mmol/L (4-12); Aspartate Amino Transferase 15 U/L (17-59); Bilirubin,Total 0.3 mg/dL (0.2-1.3); Blood Urea Nitrogen 10 mg/dL (9-20); Calcium 8.7 mg/dL (8.4-10.2); Carbon Dioxide 30 mmol/L (22-30); Chloride 106 mmol/L (98-107); Estimated CRCL calculation 112 ml/min; Estimated Glomerular Filt Rate > 60; Glucose 101 mg/dL (65-110); Potassium 3.7 mmol/L (3.4-5.0); Sodium 137 mmol/L (137-145)
--- NOTE | 2024-10-01 16:07 | WPDURCON ---
Assessment and Plan Assessment and plan (1) Left ureteral stone: Code(s): N20.1 - Calculus of ureter Status: Acute Plan Plan for cystoscopy, left retrograde pyelogram, left ureteral stent placement. Patient understands I will not be removing the stone at this time. He will require outpatient stone management likely extracorporeal shockwave lithotripsy. He understands risks of bleeding, infection, damage to urinary tract, inability to place the stent. If all goes well he can be discharged home postoperative from the recovery room Urology Consult Note HPI Date Seen: 10/01/24 Requesting Physician: Mike Peterson MD Primary Care Provider: SIGNALS INTELLIGENCE ANALYSIS MANAGER PHYSICIAN Consult Narrative Narrative: Wilberto Pryor is a 29 year old male with a known history of nephrolithiasis. He was seen by my partner Dr Jay Conroy exactly 1 year ago today for a large left UPJ stone measuring 1.5 cm. He has not had urologic follow-up but has had intermittent visits to the emergency room over the last year for left flank pain. He comes in today with significant left flank pain requiring high dose narcotics. CT scan done shows a 16 mm left UPJ stone with hydronephrosis. Urinalysis shows some red cells and some white cells but no bacteria. He is asymptomatic for infection. White blood cell count and creatinine is normal. Due to the size of the stone and significant pain he is in here we will place a left ureteral stent. Plan will be for definitive stone management to follow as an outpatient. If all goes well he can be discharged home postoperatively and will not have to stay in hospital. Note he has had stones in the past which she has passed spontaneously. He states over the last 12 months he has been to the ER 4-5 times Review of Systems Review of Systems: All systems reviewed & are unremarkable except as noted in HPI and below PMFSH Past Medical History Medical History Anxiety ADHD Surgical History Surgical History History of hernia surgery Family History Family History Grandparent Heart disease Gout Social History Social History Social History: h/o heroin abuse, currently on suboxone 09/2023. Smoking status: Current every day smoker Alcohol intake: current Substance use type: marijuana and crack/cocaine Gender identity (if verbalized by the patient): Male Meds Home Medications and Allergies Home Medications ?Medication ?Instructions ?Recorded ?Confirmed ?Type ondansetron 4 mg disintegrating 4 mg PO Q6H PRN nausea and 07/17/24 Rx tablet vomiting 3 days #12 tabs ondansetron 4 mg disintegrating 4 mg PO Q6H PRN nausea and 07/17/24 Rx tablet vomiting 3 days #12 tabs ciprofloxacin HCl 500 mg tablet 500 mg PO Q12H #10 tabs 10/01/24 Rx (Cipro) hydrocodone 5 mg-acetaminophen 325 1 tablet PO Q6H PRN pain #30 tabs 10/01/24 Rx mg tablet oxybutynin chloride 5 mg tablet 5 mg PO TID #30 tabs 10/01/24 Rx Allergies Allergy/AdvReac Type Severity Reaction Status Date / Time No Known Allergies Allergy Verified 07/17/24 09:23 Vital Signs Vital Signs - 24 hr 10/01/24 08:52 10/01/24 12:27 10/01/24 15:36 Temperature 100.0 F H 99.4 F 99.3 F Pulse Rate 132 H 99 83 Respiratory Rate 20 20 20 Blood Pressure 151/69 H 119/77 127/81 Pulse Oximetry 100 100 Oxygen Delivery Autopap Exam Const: General: cooperative, alert, awake, Physically active and in distress Nutritional Appearance: average body habitus and well nourished Orientation/consciousness: patient oriented x3 Limitations: no limitations and No altered mental status HENMT: Head: normal to inspection Eyes: General: appearance normal, both eyes and all related structures Neck: Neck: normal visual inspection and full ROM Resp: Effort & Inspection: normal respiratory effort and able to speak in complete sentences GI: Inspection: normal to inspection Back/Spine/Pelvis: Back: CVA tenderness Skin: General skin exam: normal color, no rashes or lesions noted and elasticity normal Neuro: General: patient oriented x3 and moves all extremities Extrem: General: normal to inspection and full ROM Psych: Appearance: grossly normal Results Labs 10/01/24 14:21 10/01/24 14:47 Labs: Short CBC 10/01/24 Range/Units 14:21 WBC 5.5 (4.5-10.0) K/mm3 Hgb 13.5 L (14.0-18.0) g/dL Hct 38.8 L (42.0-52.0) % Plt Count 168 (150-375) k/mm3 BMP 10/01/24 14:47 Sodium 137 Potassium 3.7 Chloride 106 Carbon Dioxide 30 BUN 10 Creatinine 0.80 Glucose 101 Calcium 8.7 Liver Function 10/01/24 Range/Units 14:47 Total Bilirubin 0.3 (0.2-1.3) mg/dL AST 15 L (17-59) U/L ALT 11 (6-50) U/L Alkaline Phosphatase 53 (38-126) U/L Albumin 4.0 (3.5-5.1) g/dL Urine 10/01/24 Range/Units 14:21 Urine Color Yellow (Yellow) Urine Appearance Clear (Clear) Urine pH 8.0 (5.0-9.0) Ur Specific [place] 1.014 (1.001-1.035) Urine Protein 1+ H (Negative) mg/dL Urine Glucose (UA) Negative (Negative) mg/dL Imaging My impression: I reviewed his CAT scan myself. He has a large 1.6 cm left UPJ stone with mild hydronephrosis.
--- NOTE | 2024-10-01 16:44 | WPDANESEPPF ---
Anes - Initial Pre Proc Eval Procedure: Operation Date: 10/01/24 16:30 Proposed Procedures p Cysto, RPG, Stone Ext, Stent Placement(Left) - Mike Peterson MD Date/Time: 10/01/24 16:44 Surgeon: Mike Peterson MD Pre Op Diagnosis: kidney stone Patient Data Age: 29 Gender: M Height: 1.83 m Weight: 68 kg Last Vital Signs Temp 37.4 C 10/01/24 16:25 Pulse 76 10/01/24 16:14 Resp 16 10/01/24 16:14 BP 111/67 10/01/24 16:14 Pulse Ox 98 10/01/24 16:14 O2 Del Method Autopap 10/01/24 08:52 Allergies Allergy/AdvReac Type Severity Reaction Status Date / Time No Known Allergies Allergy Verified 07/17/24 09:23 Home Medications ?Medication ?Instructions ?Recorded ?Confirmed ?Type ondansetron 4 mg disintegrating 4 mg PO Q6H PRN nausea and 07/17/24 Rx tablet vomiting 3 days #12 tabs ondansetron 4 mg disintegrating 4 mg PO Q6H PRN nausea and 07/17/24 Rx tablet vomiting 3 days #12 tabs ciprofloxacin HCl 500 mg tablet 500 mg PO Q12H #10 tabs 10/01/24 Rx (Cipro) hydrocodone 5 mg-acetaminophen 325 1 tablet PO Q6H PRN pain #30 tabs 10/01/24 Rx mg tablet oxybutynin chloride 5 mg tablet 5 mg PO TID #30 tabs 10/01/24 Rx Laboratory Tests 10/01/24 10/01/24 14:21 14:47 WBC 5.5 K/mm3 (4.5-10.0) RBC 4.33 L M/mm3 (4.6-6.20) Hgb 13.5 L g/dL (14.0-18.0) Hct 38.8 L % (42.0-52.0) MCV 89.6 fl (80-100) MCH 31.2 pg (26-34) MCHC 34.8 g/dl (32-36) RDW 12.3 % (11.5-14.5) Plt Count 168 k/mm3 (150-375) MPV 9.7 fl (7.4-10.4) Immature Gran % (Auto) 0.4 % (0-0.5) Neut % (Auto) 84.5 H % (45.5-73.1) Lymph % (Auto) 4.8 L % (18.3-44.2) [place] % (Auto) 9.7 H % (2.6-8.5) Eos % (Auto) 0.2 % (0-4.4) Baso % (Auto) 0.4 % (0.2-1.2) Lymph # (Auto) 0.26 L K/mm3 (0.9-3.2) [place] # (Auto) 0.5 K/mm3 (0.1-0.6) Eos # (Auto) 0.0 K/mm3 (0-0.3) Baso # (Auto) 0.0 K/mm3 (0.0-0.1) Abs Immat Gran (auto) 0.02 K/mm3 (0.00-0.031) Absolute Neuts (auto) 4.6 K/mm3 (1.3-6.7) Absolute Nucleated RBC 0.000 K/mm3 (0.0-0.012) Nucleated RBC % 0.0 % (0.0-0.2) Sodium 137 mmol/L (137-145) Potassium 3.7 mmol/L (3.4-5.0) Chloride 106 mmol/L (98-107) Carbon Dioxide 30 mmol/L (22-30) Anion Gap 1 L mmol/L (4-12) BUN 10 mg/dL (9-20) Creatinine 0.80 mg/dL (0.7-1.3) Estim Creat Clear Calc 112 ml/min Estimated GFR > 60 (59 - ) Glucose 101 mg/dL (65-110) Calcium 8.7 mg/dL (8.4-10.2) Total Bilirubin 0.3 mg/dL (0.2-1.3) AST 15 L U/L (17-59) ALT 11 U/L (6-50) Alkaline Phosphatase 53 U/L (38-126) Total Protein 7.0 g/dL (6.3-8.2) Albumin 4.0 g/dL (3.5-5.1) Urine Color Yellow (Yellow) Urine Appearance Clear (Clear) Urine pH 8.0 (5.0-9.0) Ur Specific [place] 1.014 (1.001-1.035) Urine Protein 1+ H mg/dL (Negative) Urine Glucose (UA) Negative mg/dL (Negative) Urine Ketones Negative mg/dL (Negative) Ur Blood (Man) 2+ H (Negative) Urine Nitrate Negative (Negative) Urine Bilirubin Negative (Negative) Urine Urobilinogen 0.2 mg/dL (<2.0) Leukocyte Esterase Rfl Trace H DANIA/UL (Negative) Urine RBC 21-50 H /hpf (0-2) Urine WBC 6-10 H /hpf (0-3) Ur Squamous Epith Cells None seen /hpf (Few) Urine Bacteria None seen /hpf Urine Casts 3-5 Patient hx anesthesia problems: none Family hx anesthesia problems: none Results Review: All pre-operative results and documents have been reviewed as part of the pre-operative evaluation. [facility] Past Medical History Medical History Anxiety ADHD Surgical History Surgical History History of hernia surgery Family History Family History Grandparent Heart disease Gout Social History Social History Social History: h/o heroin abuse, currently on suboxone 09/2023. Smoking status: Current every day smoker Alcohol intake: current Substance use type: marijuana and crack/cocaine Gender identity (if verbalized by the patient): Male Anes - Eval Final PreProcedure Day of Procedure 10/01/24 16:44 Patient weight: normal Heart: regular rate and rhythm Lungs: clear to auscultation and normal air movement Airway: Mallampati scale class II Neurological: alert and oriented Last oral intake: >/= 8 hours ASA classification: III Emergent: no Anesthetic plan: proceed Anesthesia type and monitoring: general GIVS and standard monitoring Results Review: All pre-operative results and documents have been reviewed as part of the pre-operative evaluation. Informed Consent: The patient's anesthetic plan and its attendant risks and benefits were discussed with the patient/family/POA. Questions were solicited and answers provided to the satisfaction of the patient/family/POA.
[2024-10-01] MEDS: ceFAZolin 2 GM/D5W 50 ML 2 GM/50 ML BAG IVPB (16:45)
--- NOTE | 2024-10-01 16:48 | WPDHPUPDATE1 ---
History and Physical Update Update Date/Time: 10/01/24 16:48 History and Physical has been reviewed, including an updated exam of the patient. There are NO changes in the patient's condition. Risks, benefits, and alternatives have been discussed and questions answered. Patient agrees to proceed with procedure.
[2024-10-01] MEDS: LIDOCAINE 2% GEL UROJET 10 ML PKG MUCOUS MEM (16:57)
--- NOTE | 2024-10-01 17:10 | W.PM.PROC2 ---
Procedure Note - Detailed Date of Procedure 10/01/24 Pre-op Diagnosis Left ureteropelvic junction stone Post-op Diagnosis Same Procedure Performed Cystoscopy, left retrograde pyelogram, left ureteral stent placement Surgeon Mike Peterson MD Anesthesia MAC and Local (Uro jet) Indications His 16 mm left UPJ stone with multiple visits to the ER. He is in distress from flank pain. We will plan on placing a stent with definitive stone management to follow. He understands risks of bleeding, infection, inability to place the stent. Stand the risks of damage to the urinary tract. He understands I will not be removing the stone. He agrees to proceed Findings Large UPJ stone. Stent successfully placed Description of Procedure His correctly identified. Informed consent obtained. He is from the operating room. He was given monitored anesthesia care. He was placed in dorsal lithotomy position. He was prepped and draped sterile fashion. Time-out performed. On cystoscopy had normal appearing bladder without abnormalities. I did a gentle retrograde pyelogram on the left. The stone was seen as a filling defect in the the ureteropelvic junction. I placed a 4.8 variable length stent. Proximal coil in the upper pole kidney. Distal coil in the bladder. The bladder was drained. He was awakened transferred to PACU in stable condition. Of note he does have history of substance abuse. He has been clean for sometime now. I had a long conversation his family. He is being sent home on pain medicine. This could be used on an as-needed basis. They can also use Tylenol. Oxybutynin for bladder spasms. They will control his pain medicine and help him through this recovery. Estimated Blood Loss 0 Drains Yes (Ureteral stent) Complications No immediate complications Condition Stable Disposition PACU
[2024-10-01] MEDS: LACTATED RINGERS 1,000 ML 30 ML IV CONT ×2 (17:13)
[2024-10-01] MEDS: oxyBUTYnin CHLORIDE 5 MG TABLET PO (18:10)
== END 2024-10-01 18:26 | disposition home or self-care (01) ==
LOC: ANHED 12:35 → ANHSURGERY 15:55
PROVIDERS: Emergency Provider Student in an Organized Health Care Education/Training Program; Visit Provider Urology
PROC: (CPT 52352; principal; 2024-10-01 16:30)
DX: N20.1 Calculus of ureter (principal); F41.9 Anxiety disorder, unspecified; F90.9 Attention-deficit hyperactivity disorder, unspecified type; F14.90 Cocaine use, unspecified, uncomplicated; F12.90 Cannabis use, unspecified, uncomplicated; Z79.891 Long term (current) use of opiate analgesic; Z98.890 Other specified postprocedural states; Z82.49 Family history of ischemic heart disease and other diseases of the circulatory system
CPT/HCPCS: 52332; 36415; 74176; 74420; 80053; 81001; 85025; 87086; 96361; 96374; 99285; A9270; C1758; C1769; C2617; J0690; J1885; J2003; J2250; J2704; J3010; J7120; Q9966

== ENCOUNTER 2024-11-26 10:59 | Emergency (ER) | payer MEDICAID, SELFPAY ==
[2024-11-26 11:09] VITALS: BP 145/80; PULSE 104; RESP 18; TEMP 36.8; O2SAT 100
--- NOTE | 2024-11-26 11:30 | ED.DENTAL ---
HPI - Dental/Oral General Chief complaint: Dental/Oral Stated complaint: poss mouth infection Source: patient Mode of arrival: ambulatory History of Present Illness HPI Narrative: 29-year-old male presented for complaint of pain and swelling to the back of the right upper gum area. Onset yesterday. Took tylenol and saltwater gargle. States this does not feel like dental pain which she has had in the past and says he has poor dentition and needs to have his teeth extracted but does not have a dentist. Says this feels like the gum is swollen. Denies difficulty maintaining secretions, throat pain, ear pain, nausea vomiting, fevers. MD Complaint: tooth pain Related Data Allergies Allergy/AdvReac Type Severity Reaction Status Date / Time No Known Allergies Allergy Verified 11/26/24 11:13 Review of Systems Review of Systems: CONSTITUTIONAL: Denies body aches, fever, chills ENT: Denies rhinorrhea, congestion, sore throat, or otalgia. Reports right upper gum/dental pain CARDIOVASCULAR: Denies chest pain, palpitations RESPIRATORY: Denies cough or dyspnea. SKIN: Denies rash, itching, or wounds. MUSCULOSKELETAL: Denies myalgia. NEUROLOGIC: Denies headache, numbness, tingling, or weakness. PMFSH Past Medical History Medical History Anxiety ADHD Surgical History Surgical History History of hernia surgery Family History Family History Grandparent Heart disease Gout Social History Social History Social History: h/o heroin abuse, currently on suboxone 09/2023. Smoking status: Current every day smoker Smokeless tobacco user: other Additional smoking assessment comments: Nicotine pouches Alcohol intake: current Substance use type: marijuana and painkillers Other substance usage details: Daily Marijuana. Hx Fentanyl user in past. Living arrangements: with family Gender identity (if verbalized by the patient): Male Spiritual care concerns: No Comments At time of signature, I have reviewed and agree with nursing past medical, surgical, social and family history unless otherwise noted. Please see nursing chart for further information. There is no relevant family history pertinent to the presenting complaint Exam Narrative: GENERAL: Appears in pain; no acute distress. HEAD: Normocephalic, atraumatic. EYES: EOMI. No redness or drainage. Conjunctivae normal. ENT: Dental pain location of #1, no tooth noted to the site, gum with swelling, erythema and darkened discoloration laterally; the erythema extends towards the soft palate without swelling. Mild swelling to the right cheek. Mucous membranes pink and moist. Throat normal. no dysphagia, odynophagia, dysphonia, or dyspnea. No uvular deviation or soft palate edema. NECK: Normal AROM. No lymphadenopathy. no induration below mandible, no neck pain. CHEST: No respiratory distress. Clear to auscultation. HEART: Regular rate and rhythm. No murmur appreciated. SKIN: Warm, dry, Normal skin turgor. NEURO: No focal deficits. Alert and oriented x3. Gait steady. HENMT: Teeth image:  1. gum area with abscess, swelling 2. area of erythema without swelling Course Course Emergency Course: Patient is aware of diagnosis, understands and agrees to treatment plan. Anticipatory guidance given. Patient agrees to follow-up as directed and is aware of reasons to seek care at the emergency department. Portions of this record may have been created with voice recognition software Level of Care: Express Care Visit Vital Signs Vital signs: Vital Signs Temperature 98.3 F 11/26/24 11:09 Pulse Rate 104 H 11/26/24 11:09 Respiratory Rate 18 11/26/24 11:09 Blood Pressure 145/80 H 11/26/24 11:09 Pulse Oximetry 100 11/26/24 11:09 Oxygen Delivery Room Air 11/26/24 11:09 Temperature 98.3 F 11/26/24 11:09 Pulse Rate 104 H 11/26/24 11:09 Respiratory Rate 18 11/26/24 11:09 Blood Pressure 145/80 H 11/26/24 11:09 Pulse Oximetry 100 11/26/24 11:09 Oxygen Delivery Room Air 11/26/24 11:09 MDM - Dental/Oral MDM Narrative Medical decision making narrative: Patients pain and complaint coupled with physical findings are consistent with abscess to right upper posterior gum. There are no focal signs of space occupying lesions that are compromising to the airway; Patient is non-toxic appearing. The floor of the mouth is soft with no signs of Wade's Angina;Patient is without trismus or drooling and able to swallow secretions. Discussed physical exam findings with pt at length and discussed plan. Rx abx, pt will monitor closely over the next 24-48 hours. Advised supportive measures and signs/symptoms to go to the ER at length. Pt is appropriate for outpt treatment and f/u. Differential Diagnosis Differential diagnosis: Likely gingival abscess, dental caries, toothache, dental abscess, fracture of tooth, aphthous ulcer and other Discharge Plan Discharge Clinical Impression: Acute periodontal abscess Patient Disposition: Home, Self-Care Condition: Stable Instructions: Antibiotic Form, Dental Abscess (ED) Additional Instructions: Take antibiotic as directed May apply heat or ice to the face Gentle brushing and flossing. Rinse mouth with warm salt water at least 2 times a day. Alternate Tylenol and ibuprofen as needed for pain Follow-up with the dentist as soon as possible--see the list provided Go to the ER immediately for any worsening symptoms or concerns Patient Language: Citizen Of [place] Prescriptions: New ibuprofen 800 mg tablet 800 mg PO TID PRN (Reason: pain) Qty: 15 0RF lidocaine HCl [Lidocaine Viscous] 2 % solution 1 applic mucous membrane TID PRN (Reason: pain) Qty: 100 0RF Rx Instructions: apply with cotton swab to site of pain amoxicillin-pot clavulanate 875-125 mg tablet 1 tablet PO Q12H 10 Days Qty: 20 0RF Follow-up/Referrals: UNKNOWN,DOCTOR [Primary Care Provider] - Time of Disposition: 11:42
== END 2024-11-26 11:48 | disposition home or self-care (01) ==
PROVIDERS: Emergency Provider Nurse Practitioner Family
DX: K05.219 Aggressive periodontitis, localized, unspecified severity (principal); F17.200 Nicotine dependence, unspecified, uncomplicated; F12.90 Cannabis use, unspecified, uncomplicated
CPT/HCPCS: 99213; G0463